=== PATIENT | male | born 1985 | race Caucasian/White ===

== ENCOUNTER 2016-10-18 17:18 | Emergency (ER) | payer OTHER ==
[~2016-10-18] VITALS: Ht 182.9 cm; Wt 95.0 kg
[2016-10-18 17:20] VITALS: BP 154/94; PULSE 94; RESP 20; TEMP 98; O2SAT 98
--- NOTE | 2016-10-18 17:40 | PD ---
HPI Chief Complaint: Injury Time Seen by Provider: 17:31 Travel History International Travel<30 days: No Contact w/Intl Traveler<30days: No Traveled to known affect area: No History of Present Illness HPI 31-year-old male came to the emergency room with history of right arm pain that has been traveling from his shoulder up on to his elbow and is circumferential. Patient seemed extremely uncomfortable. He says this has been going on for past 3 days and progressively worsening. No history of trauma. He is able to move his arm without exacerbating the pain. Patient has been taking ibuprofen/ Advil [id number] for the pain but it's not helping much. No history of chest pain. Vital signs were stable. He is otherwise a healthy person he said. PFSH Past Medical History Narrative Medical List of his past medical, surgical, social and family history was reviewed from the nursing note. Medical History: Denies Significant Hx Tetanus Vaccination: Unknown Past Surgical History Oral Surgery: Yes Social History Alcohol Use: Yes (occ) Tobacco Use: No Substance Use: No Allergies-Medications (Allergen,Severity, Reaction): Coded Allergies: No Known Allergies (Unverified , 10/18/16) Comments No known drug allergies. Reported Meds & Prescriptions Reported Meds & Active Scripts Active Flexeril (Cyclobenzaprine HCl) 5 Mg Tab 5 Mg PO TID PRN Ibuprofen 600 Mg Tab 600 Mg PO Q8H PRN Medrol Dosepak (Methylprednisolone) 4 Mg Dspk 4 Mg PO DIRECTED Per Pharmacist direction Narrative Medication List of his home medications reviewed from the nursing note. Review of Systems Except as stated in HPI: all other systems reviewed are Neg Physical Exam Narrative GENERAL: Awake, alert, significant distress SKIN: Focused skin assessment warm/dry. HEAD: Atraumatic. Normocephalic. EYES: Pupils equal and round. No scleral icterus. No injection or drainage. ENT: No nasal bleeding or discharge. Mucous membranes pink and moist. NECK: Trachea midline. No JVD. CARDIOVASCULAR: Regular rate and rhythm. No murmur appreciated. RESPIRATORY: No accessory muscle use. Clear to auscultation. Breath sounds equal bilaterally. GASTROINTESTINAL: Abdomen soft, non-tender, nondistended. Hepatic and splenic margins not palpable. MUSCULOSKELETAL: No obvious deformities. No clubbing. No cyanosis. No edema. NEUROLOGICAL: Awake and alert. No obvious cranial nerve deficits. Motor grossly within normal limits. Normal speech. PSYCHIATRIC: Appropriate mood and affect; insight and judgment normal. Data Data Last Documented VS Vital Signs Date Time Temp Pulse Resp B/P Pulse Ox O2 Delivery O2 Flow Rate FiO2 10/18/16 20:19 98.4 80 18 143/79 97 Room Air Orders Ketorolac Inj (Toradol Inj) (10/18/16 18:00) Hydromorphone Pf Inj (Dilaudid Pf Inj) (10/18/16 18:00) Orphenadrine Inj (Norflex Inj) (10/18/16 18:00) Mri C Spine W/O Contrast (10/18/16 ) Dexamethasone Inj (Decadron Inj) (10/18/16 18:00) Apply Cervical Collar (10/18/16 19:47) Collar Soft Cervical (10/18/16 ) MDM Medical Decision Making Medical Screen Exam Complete: Yes Emergency Medical Condition: Yes Medical Record Reviewed: Yes Differential Diagnosis Cervical radiculopathy, shoulder pain Narrative Course 6:42 PM given the severity of his pain I'm really concerned about cervical reticulocyte radiculopathy. Patient had good distal pulses and good cap refill and hence I don't think there is any vascular issue. I've ordered an MRI of his cervical spine. Patient was given pain medication. Awaiting for the MRI to be done and resulted. He will be signed over to the oncoming ER physician. 7:23 PM MRI scan is suggestive of significant disc protrusion and cervical radiculopathy. The neurosurgeon will be called to coordinate outpatient care. Patient's pain is down to 3 out of 10 at this point. Procedures EKG Prior to Arrival: No Scripts Cyclobenzaprine (Flexeril)5 Mg Tab5 Mg PO TID PRN (SPASM) #15 TAB Ref 0 Prov:She Reyes MD 10/18/16 Ibuprofen 600 Mg [id number] Mg PO Q8H PRN (PAIN GREATER THAN 5) #15 TAB Ref 0 Prov:She Reyes MD 10/18/16 Methylprednisolone Dosepak (Medrol Dosepak)4 Mg Dspk4 Mg PO DIRECTED #1 DSPK Ref 0 Per Pharmacist direction Prov:She Reyes MD 10/18/16 Hair Win MD Oct 18, 2016 17:40
[2016-10-18] MEDS ORDERED: KETOROLAC TROMETHAMINE 60 MG/2 ML (IM) VIAL IM ONE (18:00)
[2016-10-18] MEDS ORDERED: HYDROmorphone HCL PF 1 MG/ML VIAL IM ONE (18:00)
[2016-10-18] MEDS ORDERED: DEXAMETHASONE SOD PHOS 20 MG/5 ML VIAL IM ONE (18:00)
[2016-10-18] MEDS ORDERED: ORPHENADRINE INJ 60 MG/2 ML AMP IM ONE (18:00)
--- NOTE | 2016-10-18 19:15 | RADRPT ---
EXAM DATE/TIME: 10/18/2016 18:21 [facility] COMPARISON: No previous studies available for comparison. INDICATIONS : Radiculopathy. Right upper extremity. MEDICAL HISTORY : None. SURGICAL HISTORY : None. ENCOUNTER: Initial ACUITY: 3 weeks PAIN SCORE: 7/10 LOCATION: Right neck TECHNIQUE: Multiplanar, multisequence MRI examination of the cervical spine was performed. FINDINGS: VERTEBRAE: Normal vertebral body height. Bone marrow signal is within normal limits. ALIGNMENT: There is no anterolisthesis or retrolisthesis. CORD: Normal signal. There is flattening of the right aspect of the cord at C5-C6. POST FOSSA: The cerebellar tonsils are normal in position. Craniocervical junction and C1-C2 level demonstrate no acute finding. C2-C3: No disc herniation, canal stenosis, or neural foraminal stenosis. C3-C4: There is small right uncovertebral osteophyte mildly narrowing the right neural foramen. There is no disc herniation, canal stenosis, or left neural foraminal narrowing. C4-C5: There is small posterior disc osteophyte complex and left uncovertebral osteophyte. Disc osteophyte c omplex abuts the anterior aspect of the cord. There is mild left neural foraminal narrowing. C5-C6: There is a right paracentral disc protrusion which abuts and effaces the right aspect of the spinal c ord. This results in mild narrowing of the spinal canal. No left neural foraminal narrowing is presen t. There is likely some degree of right neural foraminal stenosis. C6-C7: No disc herniation, canal stenosis, or neural foraminal stenosis. C7-T1: No disc herniation, canal stenosis, or neural foraminal stenosis. CONCLUSION: 1. There is focal right paracentral disc herniation/protrusion at C5-C6 with mass effect on the spina l cord causing mild spinal canal stenosis and right neural foraminal narrowing. 2. There is degenerative disc disease at C4-C5 and there is mild right neural foraminal narrowing at C3-C4. Enoch Downs MD on October 18, 2016 at 19:08 Board Certified Radiologist. This report was verified electronically.
--- NOTE | 2016-10-18 19:25 | PD ---
Data Data Last Documented VS Vital Signs Date Time Temp Pulse Resp B/P Pulse Ox O2 Delivery O2 Flow Rate FiO2 10/18/16 17:32 90 18 97 Room Air 10/18/16 17:20 98.0 154/94 Orders Ketorolac Inj (Toradol Inj) (10/18/16 18:00) Hydromorphone Pf Inj (Dilaudid Pf Inj) (10/18/16 18:00) Orphenadrine Inj (Norflex Inj) (10/18/16 18:00) Mri C Spine W/O Contrast (10/18/16 ) Dexamethasone Inj (Decadron Inj) (10/18/16 18:00) Apply Cervical Collar (10/18/16 19:47) MDM Medical Record Reviewed: Yes Supervised Visit with DAYAMI: No Interpretation(s) Last Impressions Cervical Spine MRI 10/18/16 0000 Signed Impressions: Service Date/Time: Tuesday, October 18, 2016 18:21 - CONCLUSION: 1. There is focal right paracentral disc herniation/protrusion at C5-C6 with mass effect on the spinal cord causing mild spinal canal stenosis and right neural foraminal narrowing. 2. There is degenerative disc disease at C4-C5 and there is mild right neural foraminal narrowing at C3-C4. Enoch Downs MD Narrative Course During the course of the patients emergency department visit, the patients history, examination, and differential diagnosis were reviewed with the patient. The patient had an MRI of the cervical spine ordered. The patient was initially evaluated by Dr. Win. Please see her complete history and physical. The patient was initially provided Decadron, Norflex, Toradol IM for pain. On my initial evaluation of the patient the patient reports that his pain went down from all of level of 8 out of 10 in severity down to a 3 out of 10 in severity currently. Radiology studies were reviewed and remarkable for a focal right paracentral disc herniation/protrusion at C5-C6 with mass effect on the spinal cord causing mild spinal canal stenosis and right neural foraminal narrowing. There is also degenerative disc disease at C4-C5 and there is a mild right neural foraminal narrowing at C3-C4. I spoke to Dr. Bishop, the neurosurgeon on-call at approximately 7:40 PM regarding this patient's case. He did recommend a soft collar for comfort. He recommended avoiding strenuous activities over the next 2 weeks. He recommended that he call his office in the morning for a follow-up appointment. He recommended that he avoid any heavy lifting, only light lifting of left than 10-20 pounds. He agreed with the plan for the patient to be sent home on a Medrol Dosepak taper, and anti-inflammatory pain medication, and a muscle relaxer. The patient is resting comfortably and feels better, is alert and in no distress. The patients results and examination findings were discussed with the patient. The repeat examination is unremarkable and benign. The history, exam, diagnostic testing, and current condition do not suggest any significant pathology to warrant further testing, continued ED treatment, admission, or surgical evaluation at this point. The vital signs have been stable. The patient does not have uncontrollable pain, intractable vomiting, or other significant symptoms. The patient's condition is stable and appropriate for discharge. The patient will pursue further outpatient evaluation with a primary care physician or other designated or consulting physician as indicated in the discharge instructions. The patient expressed understanding and was agreeable with this plan. Physician Communication Physician Communication the patient's case was d/w with Dr. Bishop. Please see Diagnosis Primary Impression: Herniated cervical disc Additional Impression: Cervical radiculopathy Referrals: Donald Bishop MD 1 day Additional Instruction: I spoke to Dr. Bishop, the neurosurgeon on-call at approximately 7:40 PM regarding this patient's case. He did recommend a soft collar for comfort. He recommended avoiding strenuous activities over the next 2 weeks. He recommended that he call his office in the morning for a follow-up appointment. He recommended that he avoid any heavy lifting, only light lifting of left than 10-20 pounds. He agreed with the plan for the patient to be sent home on a Medrol Dosepak taper, and anti-inflammatory pain medication, and a muscle relaxer. Med/Other Pt SpecificInfo: Prescription(s) given Scripts Cyclobenzaprine (Flexeril)5 Mg Tab5 Mg PO TID PRN (SPASM) #15 TAB Ref 0 Prov:She Reyes MD 10/18/16 Ibuprofen 600 Mg Eiu600 Mg PO Q8H PRN (PAIN GREATER THAN 5) #15 TAB Ref 0 Prov:She Reyes MD 6/18/17 Methylprednisolone Dosepak (Medrol Dosepak)4 Mg Dspk4 Mg PO DIRECTED #1 DSPK Ref 0 Per Pharmacist direction Prov:She Reyes MD 10/18/16 Disposition: 01 DISCHARGE HOME Condition: Stable She Reyes MD Oct 18, 2016 19:25
[2016-10-18] MEDS ORDERED: IBUP-232 PO (19:47)
[2016-10-18] MEDS ORDERED: CYCL5TAB PO (19:47)
[2016-10-18] MEDS ORDERED: MEDR4PAK PO (19:47)
[2016-10-18 20:19] VITALS: BP 143/79; PULSE 80; RESP 18; TEMP 98.4; O2SAT 97
[2016-10-20] MEDS ORDERED: TRAM50TA PO (12:10)
[2016-11-02] MEDS ORDERED: GABA300C5 PO (10:59)
== END 2016-10-18 20:17 | disposition home or self-care (01) ==
LOC: NEPE 17:18
DX: M54.12 Radiculopathy, cervical region (principal); M50.20 Other cervical disc displacement, unspecified cervical region; Z79.899 Other long term (current) drug therapy
CPT/HCPCS: 72141; 96372; 99284; J1100; J1885; J2360; L0120